=== PATIENT | male | born 1945 | race Caucasian/White ===

== ENCOUNTER 2021-05-13 16:12 | Inpatient (IN) | payer OTHER, MEDICARE ==
[~2021-05-13] VITALS: Ht 180.3 cm; Wt 109.8 kg
[~2021-05-13 16:12] MED LIST: GLIMEPIRIDE4 M1 PO; LISINOPRIL5 MG PO; LOSARTAN POTASS25 M1 PO; METFORMIN HYD1000 MG PO; PRAVASTATIN SOD20 MG PO
[2021-05-13 16:28] VITALS: BP 55/34
== END 2021-05-13 20:59 | DRG 177 ==
LOC: ICCU 16:12
PROVIDERS: ADMIT Internal Medicine; ATTEND Internal Medicine
DX: U07.1 COVID-19 (principal); J12.82 Pneumonia due to coronavirus disease 2019; N17.9 Acute kidney failure, unspecified; Z51.5 Encounter for palliative care; E11.9 Type 2 diabetes mellitus without complications; I10 Essential (primary) hypertension; E78.5 Hyperlipidemia, unspecified